=== PATIENT | male | born 1965 | race Caucasian/White ===

== ENCOUNTER 2021-02-07 10:49 | Emergency (ER) | payer MEDICAID, OTHER ==
[~2021-02-07] VITALS: Ht 177.8 cm; Wt 65.2 kg
[2021-02-07 10:57] VITALS: BP 97/66
[2021-02-07] MEDS ORDERED: LIDOCAINE 2%,20 ML JEL.PF.APP MM ONE (11:52)
--- NOTE | 2021-02-07 12:00 | NUR ---
PER MD EXCHANGE OF SAHU CATHETER. DIFFICULTY PLACING 16 F REPLACEMENT. ABLE TO PLACE 18 F COUDE. PT TOLERATED PROCEDURE.
== END 2021-02-07 12:15 | disposition home or self-care (01) ==
LOC: ED 11:20
DX: T83.098A Other mechanical complication of other urinary catheter, initial encounter (principal); Y82.8 Other medical devices associated with adverse incidents
CPT/HCPCS: 51702; 99284